=== PATIENT | female | born 1980 | race Caucasian/White ===

== ENCOUNTER → 2019-04-03 | Outpatient (CLI) | payer OTHER ==
--- NOTE | 2019-04-03 14:17 | WOMENS IMAGING REPORT ---
EXAM DESCRIPTION: RETROPERITONEAL U/S COMPLETED DATE/TIME: 04/03/2019 2:03 pm REASON FOR STUDY: R31.9 HEMATURIA, UNSPECIFIED R31.9 HEMATURIA, UNSPECIFIED COMPARISON: None. TECHNIQUE: Dynamic and static grayscale images acquired of the kidneys and bladder and recorded on P ACS. Additional selected color Doppler and spectral images recorded. LIMITATIONS: None. FINDINGS: RIGHT KIDNEY: The right kidney measures 11.8 cm in length. Normal echogenicity. No so lid or suspicious masses. Mild dilatation of the calices. Small nonobstructing stones. LEFT KIDNEY: The left kidney measures 11.1 cm in length. Normal echogenicity. No solid or suspic ious masses. No hydronephrosis. Small nonobstructing stones. BLADDER: No masses. OTHER FINDINGS: No other significant finding. IMPRESSION: Mild right-sided caliectasis. Small nonobstructing bilateral renal calculi. TECHNICAL DOCUMENTATION: JOB ID: [id number] [employer]- All Rights Reserved Reading location - IP/workstation name: [email or web address]
== END ==
LOC: WI 13:47
PROVIDERS: ATTEND Nurse Practitioner Family
DX: N20.0 Calculus of kidney (principal)
CPT/HCPCS: 76770